=== PATIENT | male | born 1940 | race Caucasian/White ===

== ENCOUNTER 2019-05-28 09:56 | Emergency (ER) | payer MEDICAID, MEDICARE ==
[~2019-05-28] VITALS: Ht 175.3 cm; Wt 74.0 kg
[~2019-05-28 09:56] MED LIST: HYDR-3965 PO; OMEP-84 PO; ONDA8TAB9 PO
[2019-05-28 10:18] VITALS: BP 115/67
[2019-05-28] MEDS ORDERED: ketorolac tromethamine 15mg/ml inj. IM ONE (10:35)
[2019-05-28] MEDS ORDERED: METH-360 PO (10:56)
[2019-05-28] MEDS ORDERED: NAPR-56 PO (10:56)
== END 2019-05-28 11:09 | disposition home or self-care (01) ==
LOC: ER 09:56
DX: M25.512 Pain in left shoulder (principal); I10 Essential (primary) hypertension; Z98.890 Other specified postprocedural states; Z79.899 Other long term (current) drug therapy
CPT/HCPCS: 96372; 99283; J1885

== ENCOUNTER 2019-06-08 12:13 | Emergency (ER) | payer MEDICARE ==
[~2019-06-08] VITALS: Ht 175.3 cm; Wt 72.7 kg
[~2019-06-08 12:13] MED LIST changes: +METH-360 PO; +NAPR-56 PO
[2019-06-08 12:37] LABS: BASOPHILS # (AUTO) 0.1 X10'3 (0-0.2); BASOPHILS % (AUTO) 0.6 % (0-1); EOSINOPHILS # (AUTO) 1.3 X10'3 (0-0.9); EOSINOPHILS % (AUTO) 10.9 % (0-6); HEMATOCRIT 38.8 % (42.0-52.0); HEMOGLOBIN 13.1 g/dl (14.0-17.9); LYMPHOCYTES # (AUTO) 2.3 X10'3 (1.1-4.8); LYMPHOCYTES % (AUTO) 19.5 % (21-51); MEAN CORPUSCULAR HGB CONC 33.8 g/dL (33.0-36.5); MEAN CORPUSCULAR VOLUME 94.6 FL (78-98); MEAN PLATELET VOLUME 8.2 FL (7.4-10.4); MONOCYTES # (AUTO) 0.9 X10'3 (0-0.9); MONOCYTES % (AUTO) 7.7 % (2-12); NEUTROPHILS # (AUTO) 7.1 X10'3 (1.8-7.7); NEUTROPHILS % (AUTO) 61.3 % (42-75); PLATELET COUNT 310 X10'3 (140-440); WHITE BLOOD COUNT 11.6 X10'3 (4.5-11.0)
[2019-06-08 12:52] LABS: ALANINE AMINOTRANSFERASE 16 U/L (12-78); ALBUMIN 3.3 G/DL (3.4-5.0); ALBUMIN/GLOBULIN RATIO 0.7 (1.1-1.5); ALKALINE PHOSPHATASE 123 IU/L (46-116); ANION GAP 8 (8-16); ASPARTATE AMINO TRANSFERASE 15 U/L (10-37); BILIRUBIN,TOTAL 0.3 MG/DL (0.1-1.0); BLOOD UREA NITROGEN 18 MG/DL (7-18); BUN/CREATININE RATIO 11.1 (5.4-32.0); CALCIUM 9.4 MG/DL (8.5-10.1); CHLORIDE 105 MMOL/L (99-107); CREATININE 1.62 MG/DL (0.60-1.10); GLUCOSE 117 MG/DL (70-104); POTASSIUM 4.4 MMOL/L (3.5-5.1); SODIUM 140 MMOL/L (135-145); TOTAL CARBON DIOXIDE 27.4 MMOL/L (24-32); TOTAL PROTEIN 7.8 G/DL (6.4-8.2); eGFR 42 ML/MIN
[2019-06-08] MEDS ORDERED: methylPREDNISolone sod succ 125mg/2ml vial IV ONE (13:35)
[2019-06-08] MEDS ORDERED: ipratropium/albuterol 3ml nebule NEB ONE (13:35)
[2019-06-08] MEDS ORDERED: GUAI120015 PO (14:08)
[2019-06-08] MEDS ORDERED: PRED20TA PO (14:08)
[2019-06-08] MEDS ORDERED: ALBU6.7H9 INH (14:08)
[2019-06-08] MEDS ORDERED: AMOX-419 PO (14:08)
[2019-06-08 14:39] VITALS: BP 142/62
== END 2019-06-08 14:44 | disposition home or self-care (01) ==
LOC: ER 12:13
DX: J44.1 Chronic obstructive pulmonary disease with (acute) exacerbation (principal); I12.9 Hypertensive chronic kidney disease with stage 1 through stage 4 chronic kidney disease, or unspecified chronic kidney disease; N18.9 Chronic kidney disease, unspecified; F17.200 Nicotine dependence, unspecified, uncomplicated; Z87.11 Personal history of peptic ulcer disease; Z79.899 Other long term (current) drug therapy
CPT/HCPCS: 36415; 71045; 80053; 84484; 85025; 93005; 94640; 96374; 99284; J2930

== ENCOUNTER 2019-06-21 10:12 | Inpatient (IN) | payer MEDICARE, MEDICAID ==
[~2019-06-21] VITALS: Ht 175.3 cm; Wt 72.7 kg
[~2019-06-21 10:12] MED LIST changes: +ALBU6.7H9 INH; +GUAI120015 PO
[2019-06-21] MEDS ORDERED: methylPREDNISolone sod succ 125mg/2ml vial IV ONE (11:05)
[2019-06-21] MEDS ORDERED: normal saline 1000ML IV soln IVB ONE (11:05)
[2019-06-21] MEDS ORDERED: ipratropium/albuterol 3ml nebule NEB ONE (11:05)
--- NOTE | 2019-06-21 11:09 | NUR ---
Dr. Scott turned down O2 to assess Pt on room air. Pt was 96% on 2 L NC.
[2019-06-21 11:20] LABS: BASOPHILS # (AUTO) 0.1 X10'3 (0-0.2); BASOPHILS % (AUTO) 0.5 % (0-1); EOSINOPHILS # (AUTO) 0.9 X10'3 (0-0.9); EOSINOPHILS % (AUTO) 5.6 % (0-6); HEMATOCRIT 38.4 % (42.0-52.0); HEMOGLOBIN 12.9 g/dl (14.0-17.9); LYMPHOCYTES # (AUTO) 2.1 X10'3 (1.1-4.8); MEAN CORPUSCULAR HEMOGLOBIN 31.6 PG (27.0-31.0); MEAN CORPUSCULAR HGB CONC 33.7 g/dL (33.0-36.5); MEAN CORPUSCULAR VOLUME 93.7 FL (78-98); MEAN PLATELET VOLUME 8.8 FL (7.4-10.4); NEUTROPHILS # (AUTO) 12.4 X10'3 (1.8-7.7); NEUTROPHILS % (AUTO) 74.9 % (42-75); PLATELET COUNT 301 X10'3 (140-440); RED BLOOD COUNT 4.09 X10'6 (4.70-6.10); RED CELL DISTRIBUTION WIDTH 13.9 % (11.5-14.5); WHITE BLOOD COUNT 16.6 X10'3 (4.5-11.0)
--- NOTE | 2019-06-21 11:22 | NUR ---
Pt ambulated to Xray. Upon return Pt SpO2 noted to be 88% on RA. Pt placed back on [address] Scott made aware.
--- NOTE | 2019-06-21 11:26 | NUR ---
RT ARRIVES AT BEDSIDE.
[2019-06-21 12:31] LABS: ALANINE AMINOTRANSFERASE 11 U/L (12-78); ALBUMIN 3.4 G/DL (3.4-5.0); ALBUMIN/GLOBULIN RATIO 0.7 (1.1-1.5); ALKALINE PHOSPHATASE 141 IU/L (46-116); ANION GAP 11 (8-16); ASPARTATE AMINO TRANSFERASE 17 U/L (10-37); BILIRUBIN,TOTAL 0.6 MG/DL (0.1-1.0); BLOOD UREA NITROGEN 18 MG/DL (7-18); BUN/CREATININE RATIO 10.7 (5.4-32.0); CALCIUM 9.7 MG/DL (8.5-10.1); CHLORIDE 101 MMOL/L (99-107); CREATININE 1.69 MG/DL (0.60-1.10); GLUCOSE 110 MG/DL (70-104); POTASSIUM 4.6 MMOL/L (3.5-5.1); SODIUM 138 MMOL/L (135-145); TOTAL CARBON DIOXIDE 25.6 MMOL/L (24-32); eGFR 40 ML/MIN
[2019-06-21] MEDS ORDERED: ESOM20CA PO (13:24)
[2019-06-21] MEDS ORDERED: AMLO5TAB16 PO (13:24)
[2019-06-21] MEDS ORDERED: CefTRIAXone 2gm/D5W 50ml 50 ML IV ONE (13:55)
[2019-06-21] MEDS ORDERED: azithromycin/NS 500mg/250ml 250 ML IV ONE (13:55)
[2019-06-21] MEDS ORDERED: potassium CL 10mEq/100ml bag 100 ML IV PRN ×2 (14:20)
[2019-06-21] MEDS ORDERED: potassium Cl 20 mEq SR tablet PO PRN ×2 (14:20)
[2019-06-21] MEDS ORDERED: acetaminophen 325mg tablet PO PRN ×2 (14:20)
[2019-06-21] MEDS ORDERED: metoclopramide 5 mg/ml inj IV PRN (14:20)
[2019-06-21] MEDS ORDERED: diphenhydrAMINE 25mg capsule PO PRN (14:20)
[2019-06-21] MEDS ORDERED: bisacodyl 10mg suppository rectal RC PRN (14:20)
[2019-06-21] MEDS ORDERED: magnesium 2GM in 50ml NS 50 ML IV PRN (14:20)
[2019-06-21] MEDS ORDERED: magnesium Cl slow-release 64mg tablet PO PRN (14:20)
[2019-06-21] MEDS ORDERED: diphenhydrAMINE 50 mg/ml inj IV PRN (14:20)
[2019-06-21] MEDS ORDERED: ondansetron/PF 4mg/2ml inj IV PRN (14:20)
[2019-06-21] MEDS ORDERED: mag hydrox/Alum hydrox/simeth 30ml oral suspension PO PRN (14:20)
[2019-06-21] MEDS ORDERED: acetaminophen 650mg rectal suppository RC PRN (14:20)
[2019-06-21] MEDS ORDERED: magnesium hydroxide 30ml (MOM) UD suspension PO PRN (14:20)
[2019-06-21] MEDS ORDERED: magnesium 4gm in 100ml NS 100 ML IV PRN (14:20)
[2019-06-21] MEDS ORDERED: NAPR-996 PO (14:41)
[2019-06-21] MEDS ORDERED: ALBU18HF2 PO (14:41)
[2019-06-21] MEDS: ipratropium/albuterol 3ml nebule NEB SCH ×3 (15:00→23:00)
--- NOTE | 2019-06-21 17:59 | NUR ---
Pt verbalized frustration about the delay for admission bed assignment. Explained the reason for delay to the patient. Pt is awaiting dinner tray. Pt has had juice to drink and given warm blankets for comfort. Pt's vitals stable, is afebrile, denies pain. Pt verbalized frustration due to the inability to move around much because of the need for oxygen.
--- NOTE | 2019-06-21 18:20 | NUR ---
Attempted to phone report, Receiving RN unable to take report.
--- NOTE | 2019-06-21 18:25 | NUR ---
Attempted once again to give report to admission floor, staff unable to take report yet.
--- NOTE | 2019-06-21 18:40 | NUR ---
Patient in room ED 14. I have received report from ROLANDO Ortega and had the opportunity to ask questions and assume patient care.
[2019-06-21 19:00] VITALS: BP 115/83
[2019-06-21] MEDS: K and/or MAG REPLACEMENT MC SCH (20:00)
[2019-06-21] MEDS ORDERED: temazepam 15mg capsule PO PRN (21:00)
[2019-06-22] VITALS: BP 85/54
[2019-06-22 05:31] LABS: BASOPHILS % (AUTO) 0.2 % (0-1); EOSINOPHILS % (AUTO) 0 % (0-6); HEMATOCRIT 35.8 % (42.0-52.0); HEMOGLOBIN 12.2 g/dl (14.0-17.9); LYMPHOCYTES # (AUTO) 1.3 X10'3 (1.1-4.8); LYMPHOCYTES % (AUTO) 10.5 % (21-51); MEAN CORPUSCULAR HEMOGLOBIN 32.1 PG (27.0-31.0); MEAN CORPUSCULAR HGB CONC 34.1 g/dL (33.0-36.5); MEAN CORPUSCULAR VOLUME 94.2 FL (78-98); MEAN PLATELET VOLUME 9.4 FL (7.4-10.4); MONOCYTES # (AUTO) 0.5 X10'3 (0-0.9); NEUTROPHILS # (AUTO) 10.8 X10'3 (1.8-7.7); NEUTROPHILS % (AUTO) 85.3 % (42-75); PLATELET COUNT 277 X10'3 (140-440); RED CELL DISTRIBUTION WIDTH 13.8 % (11.5-14.5); WHITE BLOOD COUNT 12.7 X10'3 (4.5-11.0)
[2019-06-22 05:33] LABS: ALANINE AMINOTRANSFERASE 21 U/L (12-78); ALBUMIN 2.9 G/DL (3.4-5.0); ALBUMIN/GLOBULIN RATIO 0.7 (1.1-1.5); ALKALINE PHOSPHATASE 114 IU/L (46-116); ANION GAP 8 (8-16); ASPARTATE AMINO TRANSFERASE 15 U/L (10-37); BILIRUBIN,TOTAL 0.2 MG/DL (0.1-1.0); BLOOD UREA NITROGEN 24 MG/DL (7-18); BUN/CREATININE RATIO 14.1 (5.4-32.0); CALCIUM 9.3 MG/DL (8.5-10.1); CHLORIDE 103 MMOL/L (99-107); GLUCOSE 145 MG/DL (70-104); MAGNESIUM 1.7 MG/DL (1.5-2.4); POTASSIUM 4.8 MMOL/L (3.5-5.1); SODIUM 140 MMOL/L (135-145); TOTAL CARBON DIOXIDE 28.9 MMOL/L (24-32); TOTAL PROTEIN 7.1 G/DL (6.4-8.2); eGFR 39 ML/MIN
--- NOTE | 2019-06-22 06:13 | NUR ---
Problems reprioritized. Patient report given, questions answered & plan of care reviewed with ROLANDO Alejandra.
--- NOTE | 2019-06-22 06:40 | NUR ---
Patient in room [facility]. I have received report from Dominick MARSHALL and had the opportunity to ask questions and assume patient care. Addendum: 06/22/19 at 0640 by Ny Olsen RN [facility]
[2019-06-22] MEDS: ipratropium/albuterol 3ml nebule NEB SCH ×5 (06:53→23:00)
[2019-06-22 07:00] VITALS: BP 109/55
[2019-06-22] MEDS: enoxaparin 40mg/0.4ml syringe SUBCUT SCH (08:00)
[2019-06-22] MEDS: pantoprazole 40mg Tablet.DR PO SCH (08:03)
[2019-06-22] MEDS: K and/or MAG REPLACEMENT MC SCH ×2 (08:03→20:00)
[2019-06-22] MEDS: CefTRIAXone/D5W-Rocephin 1gm 50 ML IV SCH (08:04)
[2019-06-22] MEDS: amLODIPine 5mg tablet PO SCH (08:04)
[2019-06-22] MEDS: azithromycin/NS 500mg/250ml 250 ML IV SCH (08:06)
[2019-06-22 13:36] VITALS: BP 106/46
[2019-06-22 19:30] VITALS: BP 109/60
[2019-06-22] MEDS: lactobacillus rhamnosus 10,000 MMU CELLS/CAPSULE PO SCH (21:26)
[2019-06-23] VITALS: BP 92/52
[2019-06-23 06:28] LABS: BASOPHILS # (AUTO) 0.1 X10'3 (0-0.2); BASOPHILS % (AUTO) 0.4 % (0-1); EOSINOPHILS # (AUTO) 0.3 X10'3 (0-0.9); EOSINOPHILS % (AUTO) 1.6 % (0-6); HEMATOCRIT 34.9 % (42.0-52.0); HEMOGLOBIN 11.9 g/dl (14.0-17.9); MEAN CORPUSCULAR HEMOGLOBIN 31.8 PG (27.0-31.0); MEAN CORPUSCULAR VOLUME 93.7 FL (78-98); MONOCYTES # (AUTO) 1.4 X10'3 (0-0.9); NEUTROPHILS # (AUTO) 12.8 X10'3 (1.8-7.7); PLATELET COUNT 307 X10'3 (140-440); RED BLOOD COUNT 3.72 X10'6 (4.70-6.10); RED CELL DISTRIBUTION WIDTH 14.1 % (11.5-14.5); WHITE BLOOD COUNT 17.6 X10'3 (4.5-11.0)
[2019-06-23] MEDS: ipratropium/albuterol 3ml nebule NEB SCH ×5 (06:47→23:20)
[2019-06-23 06:54] LABS: ALANINE AMINOTRANSFERASE 22 U/L (12-78); ALBUMIN 2.9 G/DL (3.4-5.0); ALBUMIN/GLOBULIN RATIO 0.8 (1.1-1.5); ALKALINE PHOSPHATASE 101 IU/L (46-116); ANION GAP 9 (8-16); ASPARTATE AMINO TRANSFERASE 18 U/L (10-37); BILIRUBIN,TOTAL 0.2 MG/DL (0.1-1.0); BLOOD UREA NITROGEN 29 MG/DL (7-18); BUN/CREATININE RATIO 17.2 (5.4-32.0); CALCIUM 9.5 MG/DL (8.5-10.1); CHLORIDE 105 MMOL/L (99-107); CREATININE 1.69 MG/DL (0.60-1.10); GLUCOSE 90 MG/DL (70-104); MAGNESIUM 1.8 MG/DL (1.5-2.4); PHOSPHORUS 3.9 MG/DL (2.3-4.5); POTASSIUM 4.3 MMOL/L (3.5-5.1); SODIUM 141 MMOL/L (135-145); TOTAL CARBON DIOXIDE 26.8 MMOL/L (24-32); TOTAL PROTEIN 6.7 G/DL (6.4-8.2); eGFR 40 ML/MIN
[2019-06-23 07:00] VITALS: BP 139/64
--- NOTE | 2019-06-23 07:13 | NUR ---
Patient in room [facility]. I have received report from Pat RN and had the opportunity to ask questions and assume patient care.
[2019-06-23] MEDS: enoxaparin 40mg/0.4ml syringe SUBCUT SCH (08:00)
[2019-06-23] MEDS: K and/or MAG REPLACEMENT MC SCH ×2 (08:00→20:00)
[2019-06-23] MEDS: CefTRIAXone/D5W-Rocephin 1gm 50 ML IV SCH (08:30)
[2019-06-23] MEDS: pantoprazole 40mg Tablet.DR PO SCH (08:31)
[2019-06-23] MEDS: lactobacillus rhamnosus 10,000 MMU CELLS/CAPSULE PO SCH ×2 (08:31→19:47)
[2019-06-23] MEDS: amLODIPine 5mg tablet PO SCH (08:31)
[2019-06-23] MEDS: azithromycin/NS 500mg/250ml 250 ML IV SCH (09:01)
--- NOTE | 2019-06-23 10:54 | NUR ---
O2 Sat at rest on room air:_86__% If below 89%: Recovery O2 Sat at rest on _2.5__LPM:_94__%:___% via n.c (mask/nasal cannula, etc..) No further documentation is necessary. If O2 Sat did not drop below 89% on room air,ambulate patient on room air. O2 Sat while ambulating on room air:___% Recovery O2 Sat while ambulating on ___LPM:___% No further documentation is necessary. If patient does not drop below 89% while ambulating, he/she does not qualify for home O2.
[2019-06-23 11:00] VITALS: BP 159/49
[2019-06-23 14:55] VITALS: BP 108/58
--- NOTE | 2019-06-23 14:57 | NUR ---
1100 vital signs for patient not accurate. please see latest VS
[2019-06-23] MEDS ORDERED: iohexol 300mg/ml 100ml inj. ONE (15:59)
--- NOTE | 2019-06-23 16:00 | NUR ---
patient seen by DR Magana order given for CT scan. Family present in room
[2019-06-23] MEDS: ringers solution, lacted 1,000 ML IV SCH (17:31)
--- NOTE | 2019-06-23 18:43 | NUR ---
Patient in room [facility]. I have received report from ROLANDO Doll and had the opportunity to ask questions and assume patient care.
--- NOTE | 2019-06-23 18:57 | NUR ---
Problems reprioritized. Patient report given, questions answered & plan of care reviewed with Shala MARSHALL.
[2019-06-23 20:00] VITALS: BP 139/76
[2019-06-23 23:45] VITALS: BP 121/63
[2019-06-24] MEDS: ringers solution, lacted 1,000 ML IV SCH ×3 (01:20→20:15)
[2019-06-24] MEDS: salt irrigation nasal spray 45 ML SPRAY NS PRN ×2 (04:02→08:46)
[2019-06-24] MEDS: ipratropium/albuterol 3ml nebule NEB PRN (05:39)
--- NOTE | 2019-06-24 05:55 | NUR ---
Patient became short of breath while lying down, states due to congestion. Accidentally pulled IV. O2 83% on 3L, increased to 4L and O2 sats increased to 91%. Respiratory administering treatment now. IV restarted.
--- NOTE | 2019-06-24 06:21 | NUR ---
Problems reprioritized. Patient report given, questions answered & plan of care reviewed with ROLANDO Doll.
[2019-06-24 06:26] LABS: BASOPHILS # (AUTO) 0.1 X10'3 (0-0.2); BASOPHILS % (AUTO) 0.4 % (0-1); EOSINOPHILS # (AUTO) 1.2 X10'3 (0-0.9); EOSINOPHILS % (AUTO) 7.8 % (0-6); HEMATOCRIT 34.8 % (42.0-52.0); HEMOGLOBIN 11.8 g/dl (14.0-17.9); LYMPHOCYTES # (AUTO) 2.2 X10'3 (1.1-4.8); LYMPHOCYTES % (AUTO) 14.4 % (21-51); MEAN CORPUSCULAR HEMOGLOBIN 31.9 PG (27.0-31.0); MEAN CORPUSCULAR HGB CONC 33.9 g/dL (33.0-36.5); MEAN CORPUSCULAR VOLUME 93.9 FL (78-98); MEAN PLATELET VOLUME 9.1 FL (7.4-10.4); MONOCYTES # (AUTO) 1.4 X10'3 (0-0.9); MONOCYTES % (AUTO) 9.2 % (2-12); NEUTROPHILS # (AUTO) 10.6 X10'3 (1.8-7.7); NEUTROPHILS % (AUTO) 68.2 % (42-75); PLATELET COUNT 283 X10'3 (140-440); RED BLOOD COUNT 3.71 X10'6 (4.70-6.10); RED CELL DISTRIBUTION WIDTH 13.7 % (11.5-14.5); WHITE BLOOD COUNT 15.5 X10'3 (4.5-11.0)
--- NOTE | 2019-06-24 06:36 | NUR ---
Patient in room [facility]. I have received report from VIKKI Gordon RN and had the opportunity to ask questions and assume patient care.
[2019-06-24] MEDS: ipratropium/albuterol 3ml nebule NEB SCH ×5 (06:57→23:23)
[2019-06-24 07:00] VITALS: BP 96/50
[2019-06-24 07:14] LABS: CHLORIDE 102 MMOL/L (99-107); SODIUM 139 MMOL/L (135-145)
[2019-06-24 07:38] LABS: ALANINE AMINOTRANSFERASE 23 U/L (12-78); ALBUMIN 3.1 G/DL (3.4-5.0); ALBUMIN/GLOBULIN RATIO 0.8 (1.1-1.5); ALKALINE PHOSPHATASE 111 IU/L (46-116); ANION GAP 11 (8-16); ASPARTATE AMINO TRANSFERASE 16 U/L (10-37); BILIRUBIN,TOTAL 0.4 MG/DL (0.1-1.0); BLOOD UREA NITROGEN 25 MG/DL (7-18); BUN/CREATININE RATIO 16.8 (5.4-32.0); CALCIUM 9.6 MG/DL (8.5-10.1); CREATININE 1.49 MG/DL (0.60-1.10); GLUCOSE 98 MG/DL (70-104); MAGNESIUM 1.7 MG/DL (1.5-2.4); PHOSPHORUS 3.3 MG/DL (2.3-4.5); POTASSIUM 4.4 MMOL/L (3.5-5.1); TOTAL CARBON DIOXIDE 26.4 MMOL/L (24-32); TOTAL PROTEIN 7.1 G/DL (6.4-8.2); eGFR 46 ML/MIN
[2019-06-24] MEDS: enoxaparin 40mg/0.4ml syringe SUBCUT SCH (08:00)
[2019-06-24] MEDS: K and/or MAG REPLACEMENT MC SCH ×2 (08:00→20:00)
[2019-06-24] MEDS: amLODIPine 5mg tablet PO SCH (08:00)
[2019-06-24] MEDS: fluticasone nasal spray 16GM bottle NS SCH (08:16)
[2019-06-24] MEDS: pantoprazole 40mg Tablet.DR PO SCH (08:18)
[2019-06-24] MEDS: lactobacillus rhamnosus 10,000 MMU CELLS/CAPSULE PO SCH ×2 (08:18→20:15)
[2019-06-24] MEDS: CefTRIAXone/D5W-Rocephin 1gm 50 ML IV SCH (08:19)
[2019-06-24] MEDS: azithromycin/NS 500mg/250ml 250 ML IV SCH (10:49)
[2019-06-24 11:00] VITALS: BP 136/71
--- NOTE | 2019-06-24 15:01 | NUR ---
Patient seen by Dr Magana, All cares continue. . RT giving q4hrly tmt. O2 sats 92% on 3L.
--- NOTE | 2019-06-24 18:29 | NUR ---
Problems reprioritized. Patient report given, questions answered & plan of care reviewed with dustin MARSHALL.
--- NOTE | 2019-06-24 18:34 | NUR ---
Patient in room [facility]. I have received report from ROLANDO Doll and had the opportunity to ask questions and assume patient care.
[2019-06-24] MEDS ORDERED: methylPREDNISolone sod succ 125mg/2ml vial IV ONE (18:45)
[2019-06-24 20:00] VITALS: BP 140/70
[2019-06-24] MEDS: methylPREDNISolone sod succ 125mg/2ml vial IV SCH (20:00)
[2019-06-25] VITALS: BP 108/51
[2019-06-25] MEDS: methylPREDNISolone sod succ 125mg/2ml vial IV SCH ×2 (02:22→08:40)
[2019-06-25] MEDS: ipratropium/albuterol 3ml nebule NEB SCH ×4 (03:28→14:45)
[2019-06-25] MEDS: ipratropium/albuterol 3ml nebule NEB PRN (03:29)
[2019-06-25 03:49] LABS: BASOPHILS % (AUTO) 0.2 % (0-1); EOSINOPHILS % (AUTO) 0.2 % (0-6); HEMATOCRIT 36.9 % (42.0-52.0); HEMOGLOBIN 12.5 g/dl (14.0-17.9); LYMPHOCYTES # (AUTO) 0.5 X10'3 (1.1-4.8); LYMPHOCYTES % (AUTO) 5.5 % (21-51); MEAN CORPUSCULAR HEMOGLOBIN 32.2 PG (27.0-31.0); MEAN CORPUSCULAR HGB CONC 33.9 g/dL (33.0-36.5); MONOCYTES # (AUTO) 0.1 X10'3 (0-0.9); MONOCYTES % (AUTO) 0.6 % (2-12); NEUTROPHILS # (AUTO) 9.1 X10'3 (1.8-7.7); NEUTROPHILS % (AUTO) 93.5 % (42-75); PLATELET COUNT 293 X10'3 (140-440); RED BLOOD COUNT 3.88 X10'6 (4.70-6.10); RED CELL DISTRIBUTION WIDTH 13.9 % (11.5-14.5); WHITE BLOOD COUNT 9.8 X10'3 (4.5-11.0)
[2019-06-25 04:08] LABS: ALANINE AMINOTRANSFERASE 27 U/L (12-78); ALBUMIN 3.1 G/DL (3.4-5.0); ALBUMIN/GLOBULIN RATIO 0.7 (1.1-1.5); ALKALINE PHOSPHATASE 113 IU/L (46-116); ANION GAP 7 (8-16); ASPARTATE AMINO TRANSFERASE 13 U/L (10-37); BILIRUBIN,TOTAL 0.4 MG/DL (0.1-1.0); BLOOD UREA NITROGEN 19 MG/DL (7-18); BUN/CREATININE RATIO 12.7 (5.4-32.0); CALCIUM 9.4 MG/DL (8.5-10.1); CHLORIDE 102 MMOL/L (99-107); GLUCOSE 174 MG/DL (70-104); MAGNESIUM 1.8 MG/DL (1.5-2.4); PHOSPHORUS 3.9 MG/DL (2.3-4.5); POTASSIUM 4.1 MMOL/L (3.5-5.1); SODIUM 139 MMOL/L (135-145); TOTAL PROTEIN 7.4 G/DL (6.4-8.2); eGFR 45 ML/MIN
--- NOTE | 2019-06-25 06:16 | NUR ---
Problems reprioritized. Patient report given, questions answered & plan of care reviewed with ROLANDO Mcdonald.
--- NOTE | 2019-06-25 06:47 | NUR ---
Patient in room [facility]. I have received report from Eliana Gordon RN and had the opportunity to ask questions and assume patient care.
[2019-06-25] MEDS: ringers solution, lacted 1,000 ML IV SCH (07:20)
[2019-06-25 08:00] VITALS: BP 91/53
[2019-06-25] MEDS: enoxaparin 40mg/0.4ml syringe SUBCUT SCH (08:00)
[2019-06-25] MEDS: amLODIPine 5mg tablet PO SCH (08:00)
[2019-06-25] MEDS: K and/or MAG REPLACEMENT MC SCH (08:00)
[2019-06-25 08:15] VITALS: BP 99/54
[2019-06-25] MEDS: lactobacillus rhamnosus 10,000 MMU CELLS/CAPSULE PO SCH (08:44)
[2019-06-25] MEDS: pantoprazole 40mg Tablet.DR PO SCH (08:44)
[2019-06-25] MEDS: CefTRIAXone/D5W-Rocephin 1gm 50 ML IV SCH (08:45)
[2019-06-25] MEDS: fluticasone nasal spray 16GM bottle NS SCH (08:45)
[2019-06-25] MEDS: salt irrigation nasal spray 45 ML SPRAY NS PRN (08:47)
[2019-06-25] MEDS ORDERED: CEFD300C3 PO (09:55)
[2019-06-25] MEDS ORDERED: IPRA3AMP9 NEB (09:55)
[2019-06-25] MEDS ORDERED: PRED10TA PO (09:55)
[2019-06-25 11:00] VITALS: BP 110/58
--- NOTE | 2019-06-25 13:27 | NUR ---
O2 Sat at rest on room air:_85__% If below 89%: Recovery O2 Sat at rest on _4__LPM:_92__%:___% via____Nasal Canula (mask/nasal cannula, etc..) No further documentation is necessary. If O2 Sat did not drop below 89% on room air,ambulate patient on room air. O2 Sat while ambulating on room air:___% Recovery O2 Sat while ambulating on ___LPM:___% No further documentation is necessary. If patient does not drop below 89% while ambulating, he/she does not qualify for home O2.
--- NOTE | 2019-06-25 16:38 | NUR ---
Student Medication Administration: medication was reviewed, dispensed, administered and documented per hospital policy by Rochelle ARIZMENDI
--- NOTE | 2019-06-25 17:00 | NUR ---
Pt DC to home. and pt packed all belongings. Pt verbalized understanding of all DC orders, medications send to [facility]. PT A & O, happy to go home. Pt wheeled out to front and picked up by his friend to take them home. Oxygen tank education given by nurse and [facility]. Pt using 4 L via NC.
== END 2019-06-25 17:10 | disposition home health service (06) | DRG 871 ==
LOC: ER 10:13 → ED HOLD 14:33 → SUR 3N 18:52
PROVIDERS: ADMIT Family Medicine; ATTEND Family Medicine
PROC: BW241ZZ Computerized Tomography (CT Scan) of Chest and Abdomen using Low Osmolar Contrast (ICD-10-PCS; principal; 2019-06-23)
DX: A41.9 Sepsis, unspecified organism (principal); J18.9 Pneumonia, unspecified organism; J96.01 Acute respiratory failure with hypoxia; C34.90 Malignant neoplasm of unspecified part of unspecified bronchus or lung; J44.0 Chronic obstructive pulmonary disease with (acute) lower respiratory infection; N17.9 Acute kidney failure, unspecified; I12.9 Hypertensive chronic kidney disease with stage 1 through stage 4 chronic kidney disease, or unspecified chronic kidney disease; N18.9 Chronic kidney disease, unspecified; F17.210 Nicotine dependence, cigarettes, uncomplicated; E78.5 Hyperlipidemia, unspecified; H91.90 Unspecified hearing loss, unspecified ear; K21.9 Gastro-esophageal reflux disease without esophagitis; Z87.11 Personal history of peptic ulcer disease; Z71.6 Tobacco abuse counseling
CPT/HCPCS: 36415; 71046; 71260; 80053; 83605; 83735; 83880; 84100; 84484; 85025; 87040; 87081; 93005; 94640; 94668; 94760; 96374; 99285; G0378; J0456; J0696; J1650; J2930; J7120; Q9967

== ENCOUNTER 2019-06-30 14:06 | Emergency (ER) | payer MEDICARE, MEDICAID ==
[~2019-06-30] VITALS: Ht 175.3 cm; Wt 72.7 kg
[~2019-06-30 14:06] MED LIST changes: -ALBU6.7H9 INH; +AMLO5TAB16 PO; +CEFD300C3 PO; +ESOM20CA PO; -GUAI120015 PO; -HYDR-3965 PO; +IPRA3AMP9 NEB; -METH-360 PO; -NAPR-56 PO; +NAPR-996 PO; -OMEP-84 PO; -ONDA8TAB9 PO; +PRED10TA PO
[2019-06-30] MEDS ORDERED: methylPREDNISolone sod succ 125mg/2ml vial IV ONE (14:35)
[2019-06-30 15:01] LABS: BASOPHILS # (AUTO) 0.1 X10'3 (0-0.2); BASOPHILS % (AUTO) 0.5 % (0-1); EOSINOPHILS # (AUTO) 0.3 X10'3 (0-0.9); EOSINOPHILS % (AUTO) 1.6 % (0-6); HEMATOCRIT 38.9 % (42.0-52.0); HEMOGLOBIN 13.1 g/dl (14.0-17.9); LYMPHOCYTES % (AUTO) 11.5 % (21-51); MEAN CORPUSCULAR HEMOGLOBIN 31.7 PG (27.0-31.0); MEAN CORPUSCULAR HGB CONC 33.7 g/dL (33.0-36.5); MEAN CORPUSCULAR VOLUME 94.2 FL (78-98); MEAN PLATELET VOLUME 8.9 FL (7.4-10.4); MONOCYTES # (AUTO) 1.3 X10'3 (0-0.9); MONOCYTES % (AUTO) 7.6 % (2-12); NEUTROPHILS # (AUTO) 13.7 X10'3 (1.8-7.7); NEUTROPHILS % (AUTO) 78.8 % (42-75); PLATELET COUNT 289 X10'3 (140-440); RED BLOOD COUNT 4.13 X10'6 (4.70-6.10); RED CELL DISTRIBUTION WIDTH 13.8 % (11.5-14.5); WHITE BLOOD COUNT 17.4 X10'3 (4.5-11.0)
[2019-06-30 15:14] LABS: ALANINE AMINOTRANSFERASE 27 U/L (12-78); ALBUMIN 3.3 G/DL (3.4-5.0); ALBUMIN/GLOBULIN RATIO 0.9 (1.1-1.5); ALKALINE PHOSPHATASE 97 IU/L (46-116); ANION GAP 5 (8-16); ASPARTATE AMINO TRANSFERASE 13 U/L (10-37); BILIRUBIN,TOTAL 0.5 MG/DL (0.1-1.0); BLOOD UREA NITROGEN 27 MG/DL (7-18); BUN/CREATININE RATIO 17.1 (5.4-32.0); CHLORIDE 96 MMOL/L (99-107); CREATININE 1.58 MG/DL (0.60-1.10); GLUCOSE 115 MG/DL (70-104); POTASSIUM 3.9 MMOL/L (3.5-5.1); SODIUM 132 MMOL/L (135-145); TOTAL CARBON DIOXIDE 31.3 MMOL/L (24-32); eGFR 43 ML/MIN
[2019-06-30] MEDS ORDERED: iohexol 300mg/ml 100ml inj. ONE (15:54)
[2019-06-30] MEDS ORDERED: ringers solution, lactated 1000ml IV soln IV ONE (16:45)
[2019-06-30] MEDS ORDERED: ampicillin/sulbac 3gm/NS 100ml 100 ML IV ONE (16:50)
[2019-06-30 18:48] VITALS: BP 107/73
[2019-06-30] MEDS ORDERED: NITR0.4T51 SL (18:56)
[2019-06-30] MEDS ORDERED: ampicillin/sulbac 3gm/NS 100ml 100 ML IV SCH (20:00)
== END 2019-06-30 20:14 | disposition short-term general hospital (02) ==
LOC: ER 14:07
DX: J39.0 Retropharyngeal and parapharyngeal abscess (principal); I10 Essential (primary) hypertension; J44.9 Chronic obstructive pulmonary disease, unspecified; Z87.11 Personal history of peptic ulcer disease; Z88.1 Allergy status to other antibiotic agents; Z79.899 Other long term (current) drug therapy
CPT/HCPCS: 36415; 70490; 80053; 83605; 85025; 86885; 86900; 86901; 87040; 96365; 96375; 99285; J2930; Q9967; J0295; J7120